=== PATIENT | female | born 1945 | race Caucasian/White ===

== ENCOUNTER 2017-03-02 17:26 | Inpatient (IN) | payer OTHER ==
[~2017-03-02] VITALS: Ht 172.7 cm; Wt 108.4 kg
--- NOTE | ~2017-03-02 | EKG ---
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
--- NOTE | ~2017-03-02 | CNG ---
[facility] [place] [address] CYTO-NONGYN REPORT PROCEDURE Name: HOPE CASTELLANO Room #: 429-P DIS IN M.R.#: [id number] Admission: 03/02/17 Date of : 43 Discharge: 03/09/17 Report #: [id number] Path Case #: [id number] CYTOPATHOLOGY REPORT COLLECTION DATE: 03/07/2017 RECEIVED DATE: 03/08/2017 SUBMITTING PHYS: Dr. Steve Figueroa OTHER PHYS: Dr. Evelina Murrieta CLINICAL HISTORY: Pleural infusion; Tachypnea; Lung mass PROCEDURE: D. Passes performed by Dr. Figueroa yielding fluid. Four H and E slides, and 40 mL from needle rinsed in formalin were submitted to the lab. SPECIMEN(S) RECEIVED: A.Brushing, RUL B.Bronchoalveolar lavage,RUL C.Bronchial brush rinse,RUL D.EBUS guided Fine needle aspiration, Node 10R passes 1-10 * * * * * * * * * * * * FINAL DIAGNOSIS: A. Lung, RUL, Brushing: No malignant cells identified. Sheets of reactive bronchial epithelial cells with inflammation and marked air-drying artifact . B. Lung, RUL, Bronchoalveolar lavage: - No malignant cells identified. - Reactive bronchial epithelial cells, alveolar macrophages, and squamous cells present in a background of debris. C. Lung, RUL, Bronchial brush rinse: RARE ATYPICAL EPITHELIAL CELLS IDENTIFIED. - Bronchial epithelial cells, alveolar macrophages, and squamous cells present in a background of debris. D. Lymph node, Node 10R passes 1-10, EBUS guided Fine needle aspiration: RARE ATYPICAL EPITHELIAL CELLS IDENTIFIED. Numerous reactive bronchial epithelial cells. No lymphoid tissue sampled. COMMENT: The bronchial brush rinse and the tissue designated "lymph node" show a few atypical cells with enlarged nuclei, clumped chromatin and overlapping of cells with a three dimensional architecture. These cells may represent reactive bronchial epithelial cells with inflammation. Definitive features to suggest malignancy are not [address] [address] CYTO-NONGYN REPORT PROCEDURE Name: HOPE CASTELLANO Room #: 429-P [facility] IN [facility].#: [id number] Admission: 03/02/17 Date of : 43 Discharge: 03/09/17 Report #: [id number] Path Case #: [id number] present. The concurrent bronchial biopsy ([id number]) was negative for malignancy. Please refer to a separate report. [place]: (slide A0-5 of Part A and C) Dr. Michelle Wallis. PATHOLOGIST: Melida Joe M.D. REPORT ELECTRONICALLY SIGNED BY: Melida Joe M.D. DATE/TIME: 03/09/2017 15:19 * * * * * * * * * * * * GROSS PATHOLOGY: A. Brushing, RUL: The specimen is labeled "Gray Hope R" and consists of five fixed slides. B. Bronchoalveolar lavage,RUL: The specimen is submitted unfixed, labeled "Hope Castellano". Received by the Cytology Department is 20 mL of cloudy red fluid. One ThinPrep slide was prepared. C. Bronchial brush rinse,RUL: The specimen is labeled "Hope Castellano R" and consists of a brush tip in fixative. One ThinPrep slide was prepared. D. EBUS guided Fine needle aspiration, Node 10R passes 1-5: The specimen is labeled "Hope Castellano" and consists of two H and E slides labeled pass one, two H and E slides labeled pass two. 40 mL of cloudy colorless fluid in formalin from the needle rinse is also submitted and a cell block only was prepared from this material. (mm 8) IMMEDIATE EVALUATION: D. Lymph node 10R passes 1: Per Dr. Hicks; Few atypical bronchial cells, not many lymphocytes. Lymph node 10R passes 2; Few atypical bronchial cells, not many lymphocytes. Professional services performed under supervision of [facility] at [address] [place] [address] , [place] [address]. IT TRAINER(S): IDANIA Bowers(ASCP) INITIAL CPT CODE(S): A; 03317 B; 52113 C; 40221 D; 87452, 14340, 85069, 04848 Professional services performed by [facility] at [facility] Yes[address], [place] [address] Technical services performed by [facility] at [address] [place] [address], [address], [place] [address]. [facility] [place] [place] [address] CYTO-NONGYN REPORT PROCEDURE Name: HOPE CASTELLANO Room #: 429-P DIS IN M.R.#: [id number] Admission: 03/02/17 Date of : 43 Discharge: 03/09/17 Report #: [id number] Path Case #: [id number] [place] [id number] [facility], [address] [place] [address] PHONE: [phone] DIRECTOR: Mark Anthony Rebolledo M.D. * * * END OF REPORT * * *
--- NOTE | ~2017-03-02 | H ---
[place] [address] HISTORY AND PHYSICAL Name: HOPE JONES Room #: 429-P ADM IN M.R.#: [id number] Admission: 03/02/17 Attend Phys: Maged Almendarez MD Discharge: Date of : 43 Report #: [id number] THIS REPORT FOR: //name// CC: Evelina Murrieta ATTENDING PHYSICIAN: Dr. Snell. PRIMARY CARE PHYSICIAN: Dr. Murrieta. CHIEF COMPLAINT: Shortness of air. HISTORY OF PRESENT ILLNESS: The patient is a 71-year-old female with a history of AML. She follows with oncologist at . She had completed chemo, but is on a clinical trial drug that she continues to take every 12 hours. She has had recent infections including pneumonia that put her in the hospital at a few weeks ago. She finished those antibiotics. She feels like ever since she was in the hospital last time, her dyspnea never really resolved and has actually been getting worse. This has been to the point that she can barely walk to the bathroom at home without stopping to rest. Her has been very concerned that she is going to pass out because she is having this difficulty breathing. She says she was seen by piercing machine operator in the hospital when she had pneumonia, but she has not seen anybody outpatient. She does have underlying COPD, but has never required any oxygen at home. She does use an inhaler as needed. She denies any history of congestive heart failure, but states she also had another admission at in which she was found to be fluid overloaded and did require Lasix. This was in December of this year. She did have an echocardiogram at that time and does not recall being told anything about having any congestive heart failure. She does notice when she tries to ambulate some audible wheezing. She does take a diuretic since then. Her initial workup in the ER was unremarkable, but she remained tachypneic. So, she has been admitted for further evaluation. PAST MEDICAL HISTORY: Hypertension, asthma, COPD, AML, atrial fibrillation, adrenal insufficiency. PAST SURGICAL HISTORY: Laminectomy and bilateral heel spur surgery on both feet. ALLERGIES: No known drug allergies. HOME MEDICATIONS: Ipratropium nebulizer, levalbuterol nebulizer q. 6 hours; potassium 20 mEq on Mondays, Wednesdays and Fridays; Mirapex 0.5 mg b.i.d. and clinical trial medication called entospletinib 200 mg b.i.d., Symbicort 2 puffs daily, famotidine 20 mg b.i.d., vitamin D 2000 units daily, Tylenol p.r.n., cyclobenzaprine 10 mg b.i.d. p.r.n., Pradaxa 150 mg b.i.d.; Lasix 40 mg daily on Mondays, Wednesdays, and Fridays; metoprolol 50 mg b.i.d., oxycodone 5 mg q. [address] [address] HISTORY AND PHYSICAL Name: HOPE JONES Room #: 429-P [facility] IN [place].RDeshaun#: [id number] Admission: 03/02/17 Attend Phys: Maged Almendarez MD Discharge: Date of : 43 Report #: [id number] hours p.r.n., hydrocortisone 10 mg at lunch and 20 mg with breakfast. SOCIAL HISTORY: The patient lives at home with her spouse and her son. She is an ex-smoker, having quit about 10 years ago after smoking 1 pack per day for 35 years. She drinks alcohol rarely, denies any daily use. She denies any drug use. FAMILY HISTORY: Not pertinent to this hospitalization. REVIEW OF SYSTEMS: Twelve-point review of systems was reviewed with the patient and otherwise negative unless stated in the HPI. PHYSICAL EXAMINATION: GENERAL: The patient is an alert female in no acute distress. VITAL SIGNS: Temperature is 36.7, heart rate 100, respirations 25, blood pressure is /82, oxygen 93% on room air. HEENT: PERRLA. Sclerae are nonicteric. Oral mucosa is pink and moist. NECK: Supple, no JVD noted. CARDIAC: Heart rate is irregular, but no murmurs, rubs or gallops. RESPIRATORY: She is still tachypneic. I did see her get up to the commode and her tachypnea was worse to the point she could not complete full sentences with talking. Her lungs are remarkably clear without any wheezing or rhonchi or rales. VASCULAR: 2+ bilateral lower extremity edema. Pedal pulses are 2+. ABDOMEN: Obese, round, soft and nontender with positive bowel sounds. NEUROLOGIC: The patient is alert and oriented times 3. Speech is clear. She is answering questions appropriately and following commands. No focal neuro deficits. SKIN: Intact. No rashes or lesions. LABORATORY DATA AND DIAGNOSTICS: Abnormal labs revealed hemoglobin 9.5, platelets 143. Troponin is negative. INR 1.3. BNP is 2632. Chest x-ray showed possible nodule in the right lung. CT of the chest showed no PE. There was a moderate right pleural effusion and some right hilar adenopathy. ASSESSMENT AND PLAN: 1. Dyspnea. Etiology for this remains unclear at this time. She does have underlying chronic obstructive pulmonary disease, but she is not bronchospastic. We will add breathing treatments and place on oxygen for comfort. CT did show some right-sided pleural effusion. It is not clear if this is large enough to add to her symptoms. She was given a dose of Lasix in the ER and is diuresing. There was also mention of right sided hilar adenopathy. I am not sure if this is new or not or if it is related to her underlying cancer. We will try to get the records from of any previous CAT scans. We will also try to get her recent echo. She does have an elevated BNP. So, this may be related to some component of congestive heart failure, although she denies this prior diagnosis. [address] [place] [address] HISTORY AND PHYSICAL Name: HOPE JONES Room #: 429-P ADM IN M.R.#: [id number] Admission: 03/02/17 Attend Phys: Maged Almendarez MD Discharge: Date of : 43 Report #: [id number] was also negative for pulmonary embolism. She did mention that she was reading through side effects of the clinical trial drug that she is taking and dyspnea was mentioned. So, she is not sure if this is causing her symptoms. We will consult pulmonary for further recommendations. 2. Acute myeloid leukemia. The patient is on a clinical trial drug. We will consult oncology. 3. Hypertension. Blood pressure is stable, continue home medications. 4. Adrenal insufficiency. Continue hydrocortisone as at home. 5. Atrial fibrillation. This is currently rate controlled. Continue metoprolol as at home. She is on Pradaxa for anticoagulation. 6. Anemia, possibly related to previous chemo or this clinical drug. No signs of bleeding. Follow labs. 7. Deep venous thrombosis prophylaxis, place sequential compression devices. We will continue to follow the patient closely throughout the hospitalization and make changes based on clinical status. <ELECTRONICALLY SIGNED> By: WILLOW Infante 03/05/17 0702 0947 1213 WILLOW Infante /marshall
--- NOTE | ~2017-03-02 | HC ---
[facility] [place] [address] CONSULTATION Name: HOPE JONES Room #: 429-P ADM IN M.R.#: [id number] Admission: 03/02/17 Attend Phys: Maged Almendarez MD Discharge: Date of : 43 Report #: [id number] THIS REPORT FOR: //name// CC: Diego Almendarez DATE OF SERVICE: 03/03/2017 REASON FOR CONSULTATION: Asymptomatic nonsustained run of ventricular tachycardia. HISTORY OF PRESENT ILLNESS: The patient was admitted for increasing shortness of breath. She does have AML which is in currently remission, and she noted a little bit over the last 6-8 weeks, she had become more short of breath. This has been a progressive situation and has been followed by primary and pulmonary. She was admitted to earlier with Staph pneumonia and had been treated. She states that since that admission, her shortness of breath had just not gotten better and it seems to have been worsening at times. She denies orthopnea, PND, syncope or near syncope. Otherwise, she does not have any chest tightness, heaviness or fullness. Does not have any palpitations per se. She had been in 2 weeks ago. PAST MEDICAL HISTORY: Significant for: 1. Hypertension. 2. COPD with asthma. 3. AML, treated and in remission. PAST SURGICAL HISTORY: 1. Removal of bilateral heel spurs. 2. Back surgery which was a laminectomy. ALLERGIES: No known drug allergies. MEDICATIONS: Proctofoam; Mirapex; hydrocortisone 10 mg at lunch, 20 mg at breakfast; Toprol-XL 100 mg tablets, half a tablet daily; Symbicort; CoQ10; vitamin D3; vitamin C; Flagyl; Tylenol; Flexeril; Pradaxa; furosemide; oxycodone; K-Dur and Pepcid. Simvastatin, valsartan and hydrochlorothiazide and Oxybutynin have been discontinued. SOCIAL HISTORY: The patient does not smoke. She consumes alcohol socially. She does not follow a particular exercise regimen or dietary restrictions. ELECTROCARDIOGRAM: Sinus rhythm. Nonspecific ST-T wave changes. TELEMETRIC MONITORING: A short 5-beat nonsustained VT run is noted with episode of atrial fibrillation also present. [address] [address] CONSULTATION Name: HOPE JONES Room #: 429-P [facility] IN .R.#: [id number] Admission: 03/02/17 Attend Phys: Maged Almendarez MD Discharge: Date of : 43 Report #: [id number] REVIEW OF SYSTEMS: Except for symptoms as previously mentioned and those commensurate with comorbid state, the 10-point review of system is negative. LABORATORY DATA: Noted and reviewed in the chart. RADIOLOGIC DATA: Chest x-ray demonstrates a possible nodule over the right lung apex. CT scan of the chest was negative for pulmonary embolism. PHYSICAL EXAMINATION: GENERAL: A well-developed, well-nourished female, resting comfortably in no acute distress. VITAL SIGNS: Noted and reviewed in the chart. HEENT: Normocephalic, atraumatic. Pupils are equal, round, reactive to light and accommodation. Extraocular muscles are intact. Sclerae and conjunctivae are anicteric. NECK: JVD is normal. Carotid upstrokes are bilaterally symmetrical. No bruits are heard. No thyromegaly. No lymphadenopathy. LUNGS: Diffuse rhonchi are noted throughout the entire lung timmons. Inspiratory and expiratory wheezes are noted. No crackles are present. CARDIAC: Demonstrates a regular rhythm. Normal first and second heart sounds. No ventricular or atrial gallops, no rubs noted. No murmurs. No lifts or heaves, PMI normal. ABDOMEN: Soft, nontender, nondistended. Normal bowel sounds. EXTREMITIES: Without cyanosis, clubbing or edema. Distal pulses are intact. DTR symmetrical. NEUROLOGIC: Cranial nerves 2-12 are grossly normal and symmetrical. PSYCHIATRIC: Alert, oriented with normal affect. SKIN: Warm and dry. IMPRESSION: 1. Progressive dyspnea which is likely secondary to her pulmonic issues. We will defer that to primary care and pulmonary. 2. Nonsustained asymptomatic ventricular tachycardia in an individual that has no ischemic events currently. I think we will just proceed and observe at the present time. I suspect that is secondary to her comorbidities and her worsening shortness of breath. In view of that, we will just monitor closely and watch. 3. Hypertension. We will need to make sure that is in a good control. The higher the blood pressure, the more cardiac work occurs and that will create a likelihood of having cardiac dysrhythmias. <ELECTRONICALLY SIGNED> By: Cuba Espino MD 03/06/17 1315 0018 1037 Cuba Espino MD /nt
--- NOTE | ~2017-03-02 | EKG ---
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
--- NOTE | ~2017-03-02 | P ---
[facility] [place] [address] PROCEDURE REPORT Name: HOPE JONES Janes Room #: 429-P [facility] IN M.R.#: [id number] Admission: 03/02/17 Attend Phys: Maged Almendarez MD Discharge: 03/09/17 Date of : 43 Report #: [id number] THIS REPORT FOR: //name// CC: Diego Almendarez DATE OF SERVICE: 03/07/2017 DATE OF SERVICE: 03/07/2017. PROCEDURE: Fiberoptic bronchoscopy with transbronchial biopsies under fluoroscopic guidance in the right upper lobe as well as cytologic brushings and lesion in the right upper lobe as well as endobronchial ultrasound with visualization of mediastinal and hilar lymph nodes with fine needle aspirates of a 10R right hilar lymph node for cytopathology. INDICATION: Persistent right upper lobe infiltrate immunocompromised host, also concern for malignancy, ASA classification class 3. PROCEDURE NOTATION: After discussing risks, benefits of planned procedure with the patient. She desired to proceed. After obtaining informed consent, she was brought to operating room 6 by the anesthesia service and placed on general endotracheal anesthesia. Please see their notes for further details. White light bronchoscope was then passed through an 8.5 endotracheal tube until the distal trachea was seen. Endotracheal tube was repositioned to allow optimal visualization of the mediastinal structures with endobronchial ultrasound. This was then secured in place. White light bronchoscope then surveyed the airways. Mainstem, lobar, segmental and subsegmental bronchi were all explored and no significant anatomic variation with minimal secretions noted in the right upper lobe. Bronchoscope was then passed in the apical segment of the right upper lobe (RB-1) were multiple subsegments were sampled using cytologic brush and then a fluoroscopic-guided transbronchial biopsies. Bronchial lavage in the right upper lobe was then performed to end procedure and sent for cytology and microbiologic test. White light bronchoscope was then removed and endobronchial ultrasound then inserted. The mediastinal lymph nodes were then evaluated in usual fashion. Findings included a 4 mm 11R, 7 mm 10R, 7 mm 4R, no significant level 7 lymph nodes, 11L 6 mm node noted. Four passes using 25-gauge core needle of the 10R [facility] [address] [place] [address] PROCEDURE REPORT Name: HOPE JONES Janes Room #: 429-P DIS IN [facility].#: [id number] Admission: 03/02/17 Attend Phys: Maged Almendarez MD Discharge: 03/09/17 Date of : 43 Report #: [id number] lymph node were performed. This was sent for cytopathology. The patient tolerated well. No noted complications at the time of dictation. <ELECTRONICALLY SIGNED> By: Steve Figueroa MD 03/14/17 1536 1146 1250 Steve Figueroa MD /nt
--- NOTE | ~2017-03-02 | 2DMMODE ---
[facility] [address] [place] [address] 2 D/M-MODE ECHOCARDIOGRAM Name: HOPE JONES Room #: 429-P ADM IN M.R.#: [id number] Admission: 03/02/17 Attend Phys: Titi Russell Discharge: Date of : 43 Date of Service: 03/05/17 0843 Report #: [id number] THIS REPORT FOR: //name// APPROVED REPORT Study performed: 03/05/2017 06:31:07 EXAM: Comprehensive 2D, Doppler, and color-flow Echocardiogram Patient Location: Bedside Room #: 429 Status: routine BSA: 2.09 HR: 95 bpm BP: 147/66 mmHg Rhythm: Atrial Fibrillation Other Information Study Quality: Good Indications Dyspnea, nonsustained V-tach. Hx: COPD, AFIB, HTN 2D Dimensions RVDd: 38.47 mm LVEF(%): 52.02 (>50%) IVSd: 11.14 (7-11mm) LVOT Diam: 19.42 (18-24mm) LVDd: 52.66 mm PWd: 9.78 (7-11mm) Ascending Ao: 32.59 (22-36mm) LVDs: 38.51 (25-40mm) Aortic Root: 31.90 mm Moncada's LVEF: 52.02 % Volumes Left Atrial Volume (Systole) Single Plane 4CH: 76.12 mL Single Plane 2CH: 82.70 mL LA ESV Index: 41.00 mL/m2 Aortic Valve AoV Peak Omkar.: 1.18 m/s AO Peak Gr.: 5.63 mmHg LVOT Max P.38 mmHg LVOT Max V: 1.04 m/s JUS Vmax: 2.61 cm2 Mitral Valve MV Decel. Time: 138.90 ms MV E Max Omkar.: 1.47 m/s [facility] [place] [address] 2 D/M-MODE ECHOCARDIOGRAM Name: HOPE JONES Room #: 429-P [facility] IN ..#: [id number] Admission: 03/02/17 Attend Phys: Ttii Russell Discharge: Date of : 43 Date of Service: 03/05/17 0843 Report #: [id number] IVRT: 50.75 ms Pulmonary Valve PV Peak Omkar.: 1.03 m/s PV Peak Gr.: 4.41 mmHg Tricuspid Valve TR Peak Omkar.: 2.95 m/s RAP Estimate: 10.00 mmHg TR Peak Gr.: 35.33 mmHg PA Pressure: 45.00 mmHg Left Ventricle The left ventricle is normal size. There is normal LV segmental wall motion. There is normal left ventricular wall thickness. Left ventricular systolic function is normal. LVEF is 55%. This study is not technically sufficient to allow evaluation of the LV diastolic function due to atrial fibrillation. Right Ventricle The right ventricle is normal size. The right ventricular systolic function is normal. Atria Left atrium is dilated. Right atrium is dilated. Aortic Valve The aortic valve is normal in structure. No aortic regurgitation is present. There is no aortic valvular stenosis. Mitral Valve The mitral valve is normal in structure. Mild mitral annular calcification. Mild mitral regurgitation. No evidence of mitral valve stenosis. Tricuspid Valve The tricuspid valve is normal in structure. There is moderate tricuspid regurgitation. The right atrial pressure is estimated at 10 mmHg. There is moderate pulmonary hypertension with an estimated PAP of 45mmHg. Pulmonic Valve The pulmonary valve is normal in structure. Mild pulmonic regurgitation. Great Vessels The aortic root is normal in size. The ascending aorta is normal in size. IVC is dilated and collapses >50% with [facility] [address] [place] [address] 2 D/M-MODE ECHOCARDIOGRAM Name: HOPE JONES Room #: 429-P [facility] IN .R.#: [id number] Admission: 03/02/17 Attend Phys: Titi Russell Discharge: Date of : 43 Date of Service: 03/05/17 0843 Report #: [id number] inspiration. Pericardium There is no pericardial effusion. <Conclusion> The left ventricle is normal size. Left ventricular systolic function is normal. LVEF is 55%. This study is not technically sufficient to allow evaluation of the LV diastolic function due to atrial fibrillation. Left atrium is dilated. Right atrium is dilated. The aortic valve is normal in structure. Mild mitral regurgitation. There is moderate tricuspid regurgitation. The right atrial pressure is estimated at 10 mmHg. There is moderate pulmonary hypertension with an estimated PAP of 45mmHg. IVC is dilated and collapses >50% with inspiration. There is no pericardial effusion. <ELECTRONICALLY SIGNED> By: Sonido Rodarte MD, FACC 03/05/1743 Sonido Rodarte MD, FACC /INF
--- NOTE | ~2017-03-02 | S ---
[facility] [place] [address] SURGICAL PATH RPT PROCEDURE Name: KAREN,HOPE R Room #: 429-P DIS IN M.R.#: [id number] Admission: 03/02/17 Date of : 43 Discharge: 03/09/17 Report #: [id number] Path Case #: [id number] PATHOLOGY REPORT COLLECTION DATE: 03/07/2017 RECEIVED DATE: 03/08/2017 SUBMITTING PHYS: Dr. Steve Figueroa OTHER PHYS: Dr. Maged Murrieta SPECIMEN(S) RECEIVED: A.RUL biopsy * * * * * * * * * * * * FINAL DIAGNOSIS: Lung right upper lobe, bronchial biopsy: - Fragments of benign bronchial tissue as well as benign alveolated lung parenchyma. - Congestion as well as reactive changes. - Negative for malignancy. COMMENT: [employer] slides were co-reviewed by Dr. Michelle Wallis. The concurrent cytology ([id number]) showed atypical cells; however no definitive features for malignancy. Please refer to a separate report. (IUV:mgr; 03/09/2017) PATHOLOGIST: Melida Joe M.D. REPORT ELECTRONICALLY SIGNED BY: Melida Joe M.D. DATE/TIME: 03/09/2017 15:09 * * * * * * * * * * * * GROSS PATHOLOGY: Received in formalin, labeled "Hope Funes, Bronch BX RUL," are multiple (more than 10) segments of mcdaniels soft tissue measuring 2.4 x 0.3 x 0.2 cm in aggregate dimension and ranging from 0.1 cm to 0.2 cm in maximum dimension the specimen is filtered and submitted entirely in cassette A1 (TSD; 03/08/2017) CLINICAL HISTORY: None provided INITIAL CPT CODE(S): A; [address] [facility] [address] [address] SURGICAL PATH RPT PROCEDURE Name: HOPE JONES Room #: 429-P DIS IN M.R.#: [id number] Admission: 03/02/17 Date of : 43 Discharge: 03/09/17 Report #: [id number] Path Case #: [id number] Professional services performed by [facility] at [address] , [place] [address] Technical services performed by [facility] at [address] [place] [address], [facility] [address] [address]. [facility] [address] [place] [address] PHONE: [phone] DIRECTOR: Mark Anthony Rebolledo M.D. * * * END OF REPORT * * *
--- NOTE | ~2017-03-02 | S ---
[facility] [place] [address] SURGICAL PATH RPT PROCEDURE Name: HOPE JONES Room #: 429-P ADM IN M.R.#: [id number] Admission: 03/02/17 Date of : 43 Discharge: Report #: [id number] Path Case #: [id number] PATHOLOGY REPORT COLLECTION DATE: 03/05/2017 RECEIVED DATE: 03/05/2017 SUBMITTING PHYS: Dr. Maged Almendarez OTHER PHYS: Dr. Diego Murrieta SPECIMEN(S) RECEIVED: A.Peripheral smear * * * * * * * * * * * * FINAL DIAGNOSIS: Peripheral blood smear: - Mild macrocytic anemia. (see comment) COMMENT: Overall, the peripheral blood has mild macrocytic anemia. WBC and platelet counts are within the normal reference ranges. A rare metamyelocyte is noted on scanning. The etiology of the findings is unclear based entirely on slide review. Potential causes of macrocytic anemia include vitamin B12 and/or folate deficiency, liver and/or thyroid disease and primary bone marrow disorders. Correlation with clinical history and additional laboratory data is recommended. (CLW:; 03/05/2017) PATHOLOGIST: Michelle Wallis M.D. REPORT ELECTRONICALLY SIGNED BY: Michelle Wallis M.D. DATE/TIME: 03/05/2017 21:45 * * * * * * * * * * * * MICROSCOPIC DESCRIPTION: CBC Data (03/05/17): WBC 8,300 /uL, RBC 3.05, hemoglobin 10.1 g/dL, hematocrit 30.8%, MCV 100.9 fL, MCH 33.2 pg, MCHC 32.9 g/dL, RDW 26.5%. Platelet count 178,000 /uL. Automated white blood cell differential: segs 76%, lymphs 8.9%, monos 12.0%, eos 2.6%, and basos 0.5%. Peripheral Blood Smear: Cytomorphological examination of the Mcgill's stained peripheral blood smear confirms the provided data. Red blood cells show mild macrocytic anemia with no significant anisopoikilocytosis. White blood cells are predominantly segmented neutrophils and are without significant dyspoiesis or significant left shift. Hypersegmented neutrophils are noted. A rare myelocyte is noted. No blasts or Marcos rods are seen. Lymphocytes are predominantly small, round, and [address] [address] SURGICAL PATH RPT PROCEDURE Name: HOPE JONES Room #: 429-P ADM IN M.R.#: [id number] Admission: 03/02/17 Date of : 43 Discharge: Report #: [id number] Path Case #: [id number] mature appearing with condensed chromatin and scant cytoplasm with admixed large granular lymphocytes. Monocytes are mature. Platelets are adequate in number and mainly normal in morphology with rare larger platelets noted. CLINICAL HISTORY: 71 year-old woman with anemia. Morphologic review of the peripheral blood smear is requested by the patient's physician. INITIAL CPT CODE(S): A; NC Professional services performed by [facility] at [facility] [address], [place] [address] Technical services performed by [facility] at [address] [place] [address], [address], [place] [address]. [facility] [address] [place] [address] PHONE: [phone] DIRECTOR: Mark Anthony Rebolledo M.D. * * * END OF REPORT * * *
[2017-03-02 17:26] VITALS: BP 169/82
[~2017-03-02 17:26] MED LIST: ADULT LOW DOSE81 MG PO; AMLODIPINE BESYL5 MG PO; AMOX TR-K CLV1 EAC4 PO; B-100 COMPLEX1 EAC1 PO; COQ-10100 MG; DIOVAN320 MG PO; FISH OIL 1,0001 EAC5 PO; FISH OIL 1,001000 M1 PO; HYDROCHLOROTHIA25 M1 PO; HYDROCODONE-AP1 EAC6 PO; LOW DOSE ASPIRI81 M1 PO; MAGNESIUM250 M1; MEDROL DOSPAK21 TAB PO; MOBIC7.5 MG PO; NAPROSYN375 MG PO; PROCTOFOAM-HC 110 GM RC; SIMVASTATIN40 MG PO; SYMBICORT80 MCG/4.1 INH; TOPROL XL100 MG PO; TOPROL XL50 MG PO; URISPAS100 MG PO; VALSARTAN-HCTZ1 EAC3 PO; VITAMIN D-32000 UNIT PO; VITAMIN D31000 UNI2; VITAMINC500 PO; ZOCOR 10 MG TAB10 M1 PO
[2017-03-02 18:00] LABS: HEMATOCRIT 28.1 % (37.0-47.0); HEMOGLOBIN 9.5 gm/dL (12.0-15.0); MCHC 33.7 g/dL (28.0-37.0); MCV 100.8 fL (80.0-100.0); PLATELET COUNT 143 thou/uL (150-400); RBC 2.79 mil/uL (4.20-5.00); RDW 26.4 % (10.5-14.5)
[2017-03-02 18:05] LABS: MANUAL DIFF YES
[2017-03-02 18:06] LABS: ANION GAP 5 mmol/L (7-16); BUN 17 mg/dL (7-18); CHLORIDE 108 mmol/L (98-107); CO2 28 mmol/L (21-32); GLUCOSE 116 mg/dL (74-106); POTASSIUM 4.7 mmol/L (3.5-5.1); SODIUM 141 mmol/L (136-145)
[2017-03-02] MEDS ORDERED: FLAGYL500 MG PO (18:13)
[2017-03-02] MEDS ORDERED: TYLENOL325 MG PO (18:13)
[2017-03-02] MEDS ORDERED: FLEXERIL PO (18:14)
[2017-03-02] MEDS ORDERED: FUROSEMIDE 40 M40 M1 PO (18:15)
[2017-03-02] MEDS ORDERED: PRADAXA150 MG PO (18:15)
[2017-03-02] MEDS ORDERED: OXYBUTYNIN 5 MG5 M2 PO (18:16)
[2017-03-02] MEDS ORDERED: OXYCODONE HCL 55 MG PO (18:16)
[2017-03-02] MEDS ORDERED: KLOR-CON 1010 MEQ PO (18:17)
[2017-03-02] MEDS ORDERED: PEPCID20 MG PO (18:18)
[2017-03-02 18:19] LABS: NT-PRO BRAIN NAT PEPTIDE 2632 pg/mL (<300); TROPONIN-I < 0.04 ng/mL (<0.04-0.07)
[2017-03-02 18:23] LABS: ABSOLUTE NEUTROPHILS 5.4 thou/uL (1.4-8.2); ANISOCYTOSIS 2+; TOTAL CELL COUNT 100
[2017-03-02 20:21] LABS: INR 1.3
[2017-03-02 20:35] VITALS: BP 140/84
[2017-03-02 21:30] VITALS: BP 150/77
[2017-03-02] MEDS ORDERED: MIRAPEX0.5 MG PO (23:30)
[2017-03-02 23:35] VITALS: BP 156/75
[2017-03-02] MEDS ORDERED: HYDROCORTISONE10 MG PO ×2 (23:35→23:36)
[2017-03-03 03:52] VITALS: BP 133/74
[2017-03-03 07:52] VITALS: BP 138/64
[2017-03-03 16:04] VITALS: BP 140/64
[2017-03-03 20:09] VITALS: BP 130/55
[2017-03-04 03:49] LABS: HEMATOCRIT 26.7 % (37.0-47.0); HEMOGLOBIN 8.9 gm/dL (12.0-15.0); MCH 33.8 pg (26.0-34.0); MCHC 33.5 g/dL (28.0-37.0); MCV 100.7 fL (80.0-100.0); RBC 2.65 mil/uL (4.20-5.00); RDW 26.2 % (10.5-14.5); WBC 6.9 thou/uL (4.0-11.0)
[2017-03-04 04:00] LABS: PHOSPHORUS 4.9 mg/dL (2.5-4.9); POTASSIUM 3.6 mmol/L (3.5-5.1)
[2017-03-04 04:18] VITALS: BP 129/52
[2017-03-04 07:47] VITALS: BP 143/76
[2017-03-04 15:40] VITALS: BP 135/59
[2017-03-04 20:00] VITALS: BP 134/54
[2017-03-05 00:46] LABS: HEMATOCRIT 27.5 % (37.0-47.0); HEMOGLOBIN 9.3 gm/dL (12.0-15.0); MCH 33.9 pg (26.0-34.0); MCHC 33.6 g/dL (28.0-37.0); MCV 100.7 fL (80.0-100.0); PLATELET COUNT 141 thou/uL (150-400); RBC 2.73 mil/uL (4.20-5.00); RDW 26.2 % (10.5-14.5); WBC 5.8 thou/uL (4.0-11.0)
[2017-03-05 00:55] LABS: CALCIUM 8.2 mg/dL (8.5-10.1); CREATININE 0.9 mg/dL (0.6-1.0); MANUAL DIFF YES; POTASSIUM 3.6 mmol/L (3.5-5.1)
[2017-03-05 01:15] LABS: ABSOLUTE NEUTROPHILS 4.4 thou/uL (1.4-8.2); ANISOCYTOSIS 3+; TOTAL CELL COUNT 100
[2017-03-05 01:16] LABS: POLYCHROMASIA 1+
[2017-03-05 04:32] VITALS: BP 147/66
[2017-03-05 08:40] VITALS: BP 144/70
[2017-03-05 11:28] LABS: % SATURATION 34 % (20-39); ABSOLUTE RETIC COUNT 0.1258 10^6/uL; IRON 96 ug/dL (50-170); OBSERVED RETIC COUNT 4.09 % (0.6-2.6); TIBC 279 ug/dL (250-450); UIBC 183 ug/dL
[2017-03-05 12:15] LABS: TSH 1.511 uIU/mL (0.358-3.740)
[2017-03-05 23:00] VITALS: BP 127/52
[2017-03-06 04:34] VITALS: BP 109/42
[2017-03-06 06:43] LABS: HEMATOCRIT 27.6 % (37.0-47.0); HEMOGLOBIN 9.5 gm/dL (12.0-15.0); MCH 34.2 pg (26.0-34.0); MCHC 34.4 g/dL (28.0-37.0); MCV 99.5 fL (80.0-100.0); PLATELET COUNT 143 thou/uL (150-400); RBC 2.78 mil/uL (4.20-5.00); RDW 26.4 % (10.5-14.5); WBC 6.4 thou/uL (4.0-11.0)
[2017-03-06 06:46] LABS: MANUAL DIFF YES
[2017-03-06 06:56] LABS: CALCIUM 8.5 mg/dL (8.5-10.1); CREATININE 0.8 mg/dL (0.6-1.0); POTASSIUM 3.8 mmol/L (3.5-5.1)
[2017-03-06 08:15] LABS: ABSOLUTE NEUTROPHILS 4.5 thou/uL (1.4-8.2); TOTAL CELL COUNT 100
[2017-03-06 08:16] LABS: ANISOCYTOSIS 3+; HYPOCHROMASIA 1+; MACROCYTES 1+; MICROCYTES 1+
[2017-03-06 08:23] VITALS: BP 146/66
[2017-03-06 17:26] VITALS: BP 154/68
[2017-03-06 20:00] VITALS: BP 148/53
[2017-03-07 04:54] VITALS: BP 141/65
[2017-03-07 08:09] VITALS: BP 146/68
[2017-03-07 09:33] VITALS: BP 145/71
[2017-03-07 11:12] LABS: A/G RATIO 1.6 (0.7-1.7); ALBUMIN 3.3 g/dL (2.9-4.4); ALPHA 1 0.3 g/dL (0.0-0.4); ALPHA 2 0.7 g/dL (0.4-1.0); BETA 0.9 g/dL (0.7-1.3); GAMMA 0.2 g/dL (0.4-1.8); M-SPIKE Not Observed g/dL (Not Observed)
[2017-03-07 13:00] VITALS: BP 133/66
[2017-03-07 19:58] VITALS: BP 125/73
[2017-03-08 04:02] VITALS: BP 123/57
[2017-03-08 07:36] VITALS: BP 128/60
[2017-03-08 19:42] VITALS: BP 150/68
[2017-03-09 03:31] VITALS: BP 121/62
[2017-03-09 08:44] VITALS: BP 124/61
[2017-03-09 13:01] VITALS: BP 124/61
== END 2017-03-09 13:44 | disposition home or self-care (01) | DRG 853 ==
LOC: ER 17:26 → EROBS 20:08 → 4E 20:08
PROVIDERS: Emergency Medicine; Hospitalist; Internal Medicine; Internal Medicine Endocrinology, Diabetes & Metabolism; Internal Medicine Hematology & Oncology
PROC: 0BBC8ZX Excision of Right Upper Lung Lobe, Via Natural or Artificial Opening Endoscopic, Diagnostic (ICD-10-PCS; principal; 2017-03-07)
DX: A41.9 Sepsis, unspecified organism (principal); J96.01 Acute respiratory failure with hypoxia; J15.6 Pneumonia due to other Gram-negative bacteria; I47.2 Ventricular tachycardia; K92.2 Gastrointestinal hemorrhage, unspecified; J44.0 Chronic obstructive pulmonary disease with (acute) lower respiratory infection; J44.1 Chronic obstructive pulmonary disease with (acute) exacerbation; C92.Z0 Other myeloid leukemia not having achieved remission; E27.40 Unspecified adrenocortical insufficiency; I10 Essential (primary) hypertension; I48.91 Unspecified atrial fibrillation; E66.9 Obesity, unspecified; D64.9 Anemia, unspecified; D69.6 Thrombocytopenia, unspecified; E78.5 Hyperlipidemia, unspecified; Z87.891 Personal history of nicotine dependence; Z68.36 Body mass index [BMI] 36.0-36.9, adult
CPT/HCPCS: 10183; 62110; 70005

== ENCOUNTER → 2017-03-15 | Outpatient (CLI) | payer OTHER ==
[~2017-03-15] MED LIST changes: +FLAGYL500 MG PO; +FLEXERIL PO; +FUROSEMIDE 40 M40 M1 PO; +HYDROCORTISONE10 MG PO; +KLOR-CON 1010 MEQ PO; +MIRAPEX0.5 MG PO; +OXYBUTYNIN 5 MG5 M2 PO; +OXYCODONE HCL 55 MG PO; +PEPCID20 MG PO; +PRADAXA150 MG PO; +TYLENOL325 MG PO
== END ==
LOC: RAD 15:23
DX: J98.11 Atelectasis (principal); C95.90 Leukemia, unspecified not having achieved remission; R06.00 Dyspnea, unspecified

== ENCOUNTER → 2017-04-25 | Outpatient (CLI) | payer OTHER | LOC: CAT 04-06 08:34 | DX: R91.8 Other nonspecific abnormal finding of lung field (principal) ==